=== PATIENT | male | born 1965 | race Caucasian/White ===

== ENCOUNTER → 2021-10-25 | Outpatient (CLI) | payer OTHER, SELFPAY ==
--- NOTE | 2021-10-24 | EGD_PTH ---
PATIENT: GERARDO BANSAL LOC: [facility] U#:[id number] AGE/SX: 56/M ROOM: RE10/25/[address]: Dr. Dario Lawrence MD : 1965 BED: DIS: 10/25/2021 SPEC #: [id number] RECD: 10/24/21 15:18 STATUS: LASHANDA KHADRA #: [id number] PAULINE: 10/24/21 00:[address]: Dario Lawrence DEPT: SURGICAL PATHOLOGY RECD BY: Gely Lopez Tissues: Gastric mucous membrane Procedures: Surgery Specimen Level IV HEADER OPERATION: EGD PRE-OP DIAGNOSIS: Anemia, pancreatic CA TISSUE SUBMITTED: Antral biopsy H/H MICROSCOPIC DIAGNOSIS Antrum, biopsy: Mild chronic gastritis. AM:johan 10/28/2021 COMMENT The results of immunohistochemistry for Helicobacter pylori will be reported separately ([id number]). MICROSCOPIC DESCRIPTION Slides are reviewed. GROSS DESCRIPTION Received in fixative is one container labeled with the patient's name and designated antral biopsy. The specimen consists of multiple irregular fragments of light perla soft tissue that in aggregate measure 0.7 x 0.5 x 0.1 cm. The specimen is totally submitted in one cassette. / AM:johan 10/25/2021 TC:3 [facility]: [id number]
--- NOTE | 2021-10-24 | IMM_PTH ---
PATIENT: GERARDO BANSAL LOC: [facility] U#:[id number] AGE/SX: 56/M ROOM: RE10/25/[address]: Dr. Dario Lawrence MD : 1965 BED: DIS: 10/25/2021 SPEC #: [id number] RECD: 10/25/21 10:11 STATUS: LASHANDA KHADRA #: [id number] PAULINE: 10/24/21 00:[address]: Dario Lawrence DEPT: IMMUNOHISTOCHEMISTRY RECD BY: Jacqueline Costa Tissues: Stomach, NOS Procedures: H Pylori (initial) PHYSICIAN & INSTITUTION [place] [id number] SPECIMEN INFORMATION: Tissue Source: Antral biopsy Clinical Info: Anemia, pancreatic CA Specimen Number: [id number] CPT code: 48785 METHODOLOGY: Deparaffinized sections of prefer/formalin-fixed tissue or PAP/DQ stained slides are incubated with monoclonal/polyclonal antibodies/oligonucleotide probes. Localization is made via biotin free immunoperoxidase method. Appropriate controls are performed and reacted as expected. Results on target cell population are indicated in the following table: RESULTS: ANTIBODY / CLONE RESULT H Pylori (polyclonal) negative These tests were developed and their performance characteristics determined by [facility]. They may not have been cleared or approved by the [place] Food and Drug Administration. The FDA has determined that such clearance or approval is not necessary. The above immunohistochemical/dualISH markers are ordered and reviewed by the Pathologist. INTERPRETATION: Antral biopsy: Negative for Helicobacter pylori organisms. AM:johan 10/28/2021
== END | disposition home or self-care (01) ==
LOC: LABSPEC 09:38
PROVIDERS: Visit Provider Surgery
DX: K29.50 Unspecified chronic gastritis without bleeding (principal); C25.9 Malignant neoplasm of pancreas, unspecified; D63.0 Anemia in neoplastic disease
CPT/HCPCS: 88305; 88342